=== PATIENT | male | born 1935 | race Caucasian/White ===

== ENCOUNTER 2017-12-19 15:01 | Outpatient (CLI) | payer MEDICARE, BC, SELFPAY | END 2017-12-19 15:02 | PROVIDERS: PCP Family Medicine; Visit Provider Psychiatry & Neurology Neurology | DX: I63.432 Cerebral infarction due to embolism of left posterior cerebral artery (principal); R41.3 Other amnesia; R25.1 Tremor, unspecified; I10 Essential (primary) hypertension | CPT/HCPCS: 99215 ==

== ENCOUNTER 2018-03-12 13:11 | Outpatient (REF) | payer MEDICARE, BC, SELFPAY ==
[2018-03-13 15:33] LABS: Chlamydia Result Negative; GC Result Negative; Specimen Description URINE
== END 2018-03-12 13:31 ==
LOC: LBN 13:11
PROVIDERS: PCP Family Medicine; Visit Provider Family Medicine
DX: R36.9 Urethral discharge, unspecified (principal); Z11.3 Encounter for screening for infections with a predominantly sexual mode of transmission
CPT/HCPCS: 87077; 87491; 87591; 87070; 87075; 87086; 87186; 87205

== ENCOUNTER 2018-04-28 22:48 | Outpatient (REF) | payer MEDICARE, BC, SELFPAY ==
[2018-04-28 23:11] LABS: Bilirubin Negative (Negative); Blood Moderate (Negative); Clarity Cloudy; Glucose Negative (Negative); Ketones Negative (Negative); Leukocyte Esterase Large (Negative); Nitrite Positive (Negative); pH 7.5 (5-8)
[2018-04-28 23:23] LABS: WBC >50 HPF (0-5)
[2018-04-28 23:24] LABS: C & S Indicated? C&S Done As Ordered
== END 2018-04-28 23:08 ==
LOC: LBN 22:48
PROVIDERS: PCP Family Medicine; Visit Provider Family Medicine
DX: R82.90 Unspecified abnormal findings in urine (principal); R30.0 Dysuria
CPT/HCPCS: 87077; 81003; 81015; 87086

== ENCOUNTER 2018-10-22 10:26 | Outpatient (REF) | payer MEDICARE, BC, SELFPAY ==
[2018-10-22 08:16] LABS: Calculated LDL 79; Cholesterol 141 mg/dL (50-200); HDL Cholesterol 52 mg/dL (40-60); Triglyceride 53 mg/dL (30-150)
== END 2018-10-22 10:46 ==
LOC: LBN 10:26
PROVIDERS: PCP Family Medicine; Visit Provider Nurse Practitioner Adult Health
DX: I10 Essential (primary) hypertension (principal); I48.2 Chronic atrial fibrillation
CPT/HCPCS: 80061; 83721

== ENCOUNTER 2018-11-12 11:05 | Outpatient (REF) | payer MEDICARE, BC, SELFPAY ==
[2018-11-12 12:35] LABS: Uric Acid 3.6 mg/dL (3.5-7.2)
[2018-11-12 12:46] LABS: Abs Immature Grans 0.06 k/cumm (0.0-0.09); Absolute Basophil Count 0.02 k/cumm (0.0-0.2); Absolute Eosinophil Count 0.08 k/cumm (0.0-0.7); Absolute Lymphocyte Count 1.19 k/cumm (1.2-3.4); Absolute Neutrophil Count 7.14 k/cumm (1.2-6.7); Basophils % 0.2; Eosinophils % 0.8; HCT 41.1 % (40.0-50.0); HGB 14.3 g/dL (13.5-17.5); Immature Grans % 0.6; Lymphocytes % 12.2; Mean Corp. HGB Concentration 34.8 g/dL (32.0-36.0); Mean Corpuscular Hemoglobin 31.1 pg (27.0-33.0); Mean Corpuscular Volume 89.3 fL (80-95); Mean Platelet Volume 9.7 fL (8.0-11.0); Monocytes % 13.3; Neutrophils % 72.9; Platelet Count 229 x1000/uL (130-400); RBC Distribution Width 13.4 % (11.8-14.1); White Blood Cell Count 9.79 k/cumm (4.4-10.8)
== END 2018-11-12 11:25 ==
LOC: LBN 11:05
PROVIDERS: PCP Family Medicine; Visit Provider Nurse Practitioner Adult Health
DX: M10.9 Gout, unspecified (principal)
CPT/HCPCS: 84550; 85025

== ENCOUNTER 2019-04-18 18:50 | Outpatient (REF) | payer MEDICARE, BC, SELFPAY | END 2019-04-18 19:10 | LOC: LBN 18:50 | PROVIDERS: PCP Family Medicine; Visit Provider Family Medicine | DX: N39.0 Urinary tract infection, site not specified (principal) | CPT/HCPCS: 87070; 87205 ==

== ENCOUNTER 2019-04-20 15:37 | Outpatient (REF) | payer MEDICARE, BC, SELFPAY | END 2019-04-20 15:57 | LOC: LBN 15:37 | PROVIDERS: PCP Family Medicine; Visit Provider Nurse Practitioner Adult Health | DX: N48.89 Other specified disorders of penis (principal); R36.9 Urethral discharge, unspecified | CPT/HCPCS: 87070; 87205 ==

== ENCOUNTER → 2019-06-01 07:55 | Outpatient (BNVA) | payer MEDICARE, BC, SELFPAY | PROVIDERS: PCP Family Medicine; Referring Provider Family Medicine; Visit Provider Urology | DX: R36.9 Urethral discharge, unspecified (principal) | CPT/HCPCS: 99203; 99214 ==

== ENCOUNTER 2019-10-25 13:02 | Emergency (ER) | payer MEDICARE, BC, SELFPAY ==
--- NOTE | 2019-10-25 12:45 | DI.RAD_ITS ---
EXAM: XR CHEST 1V IN DI DEPT CLINICAL HISTORY: R sided weakness, r/o cva, r/o acute disease TECHNIQUE: 2D digital imaging was performed. COMPARISON: No exams were available for comparison FINDINGS: MEDIASTINUM: Normal. HEART: Normal. PULMONARY VASCULATURE: Normal. LUNGS: Mild right basilar atelectasis. PLEURAL SPACE: No pleural effusion or pneumothorax. BONE:Age-appropriate degenerative changes are seen in the spine. Degenerative changes are seen in sh oulders bilaterally. OTHER FINDINGS:Poor inspiration with elevation of the right hemidiaphragm. IMPRESSION: Mild right basilar atelectasis. DATA REPOSITORY: RADIATION DOSE DELIVERED:
--- NOTE | 2019-10-25 12:45 | DI.CT_ITS ---
EXAM: CT HEAD - STROKE PROTOCOL CLINICAL HISTORY: Facial droop, R sided weakness, r/o acute cva. TECHNIQUE: Imaging Protocol: Axial computed tomography images with coronal and sagittal reformatted images were created and reviewed COMPARISON: No exams were available for comparison FINDINGS: There is patient motion artifact present. Ventricles and Extra axial spaces: There is global cerebral atrophy present. Hemorrhage: None. Cerebral parenchyma: There are areas of decreased attenuation in the white matter consistent with sma ll vessel ischemic disease. There is a large left [employer] distribution infarct noted. No acute territor ial infarct is seen. Midline shift: None. Brainstem/Cerebellum: Normal. Calvarium: Normal. Visualized Paranasal sinuses/Mastoids: Clear. Soft Tissues: Unremarkable. IMPRESSION: No acute intracranial process. RADIATION DOSE DELIVERED: Total DLP DATA REPOSITORY: All CT scans at this facility are submitted to the National Radiology Data Registry (NRDR) Dose Index Registry (DIR) with the [employer] (A[employer]). RADIATION OPTIMIZATION: All CT scans at this facility use at least one of these dose optimization te chniques: automated exposure control; mA and/or kV adjustment per patient size (includes targeted exa ms where dose is matched to clinical indication); or iterative reconstruction.
[2019-10-25 13:07] VITALS: BP 149/88; PULSE 88; RESP 15; TEMP 36.8; O2SAT 98
--- NOTE | 2019-10-25 13:11 | ED.GENADUL_ITS ---
Discharge Plan Disposition Patient Disposition: HOME Condition: Stable Discharge Details Chief Complaint: CVA/TIA Clinical Impression: Right sided weakness, History of dementia Primary Care Provider: Elissa Montero ED Provider: Lo Laurent Home Meds and New Rx's Prescriptions: No Action gabapentin 100 MG capsule 100 mg PO BID Qty: 1 RF: 0 acetaminophen 325 MG tablet 650 mg PO Q4H PRN RF: 0 lorazepam [Ativan] 0.5 MG tablet 0.5 mg PO Q8H PRN RF: 0 magnesium hydroxide [Milk of Magnesia] 400 MG/5 ML suspension 30 ml PO PRN RF: 0 tamsulosin 0.4 MG capsule 0.8 mg PO HS RF: 0 bisacodyl [Dulcolax (bisacodyl)] 10 MG suppository 10 mg RC PRN RF: 0 Fleet Enema 133 ML enema 133 ml RC PRN RF: 0 folic acid 1 MG tablet 1 mg PO DAILY RF: 0 gabapentin 100 MG capsule 100 mg PO BID RF: 0 brimonidine 15 ML drops 1 drp OS BID RF: 0 Discharge Instructions Instructions: Weakness (ED) Additional Instructions: Drink plenty of fluids and get plenty of rest. Alternate tylenol and motrin as needed and directed for pain. Follow-up with your primary care doctor in the next 2 days. Return to the emergency department with any worsening or new concerning symptoms. Discharge Data Discharge Date/Time-TO BE ENTERED AT DEPARTURE: 10/25/19 14:38 Discharge Physician: Lo Laurent Medical Decision Making 84-year-old male with a history of dementia, previous stroke with hemiparesis presents as a stroke alert with slurred speech, facial droop and right-sided weakness noted within the past hour while at [facility]. BP mildly hypertensive, otherwise vitals with normal limits. Patient sent directly to radiology for stat CT head which was negative for any acute findings. Chest x-ray negative. Upon return from radiology, patient is refusing IV, lab draw or any other work- up. He will not answer any questions stating only I am tired of this and want to go . Patient is DNR/DNI. Case was discussed with patient's son Sriram who stated that he does not want father to have any work-up against his wishes and that pt has been stating that he is tired and frustrated and wanting everything to end since his stroke 1 to 2 years ago. Son is fine with transfer back to the rehab without any further work-up here. Patient was noted to move his upper extremities but will not follow commands and lift his lower extremities or answer any other questions. Case was discussed w/ nurse shipping manager Ariella at [facility] as well as Dr. Yates who is the physician covering at [facility]. They were informed of plan for transfer back to the rehab. Advised to return with any concerns. Medical Records Medical records reviewed: Yes I reviewed the patient's medical records. Imaging Data Radiologic Study: Radiologist's impression: CT Head Without Contrast Exam date and time: 10/25/2019 12:55 PM Age: 84 years old Clinical indication: Other: Facial droop, R sided weakness, R/O acute CVA TECHNIQUE: Imaging protocol: Computed tomography of the head without contrast. Radiation optimization: All CT scans at this facility use at least one of these dose optimization techniques: automated exposure control; mA and/or kV adjustment per patient size (includes targeted exams where dose is matched to clinical indication); or iterative reconstruction. Other technique: STROKE PROTOCOL was implemented. COMPARISON: No relevant prior studies available. FINDINGS: Brain: There is an old left posterior cerebral artery infarct zone with encephalomalacia of the left occipital lobe and posterior medial left temporal lobe. There is atrophy and chronic small vessel deep white matter ischemia which is severe in nature. There is no acute hemorrhage. There is no large territory acute CVA. Ventricles: Normal. No ventriculomegaly. Bones/joints: Unremarkable. No acute fracture. Sinuses: Visualized sinuses are unremarkable. No fluid levels. Mastoid air cells: Visualized mastoid air cells are well aerated. Soft tissues: Unremarkable. IMPRESSION: 1. Old left posterior cerebral artery territory infarct. 2. Atrophy and chronic small vessel deep white matter ischemia. 3. No acute large territory CVA. 4. No intracranial hemorrhage. XR Chest, 1 View Exam date and time: 10/25/2019 1:32 PM Age: 84 years old Clinical indication: Other: R sided weakness, R/O CVA, R/O acute disease TECHNIQUE: Imaging protocol: XR of the chest Views: 1 view. COMPARISON: No relevant prior studies available. FINDINGS: Lungs: Mild right basilar atelectasis. No acute lung infiltrates. No edema. Pleural space: No pleural effusions. Heart/Mediastinum: Normal heart size. Bones/joints: Degenerative thoracic spine disease and bilateral shoulder joint changes. IMPRESSION: 1. Mild right basilar atelectatic features are suggested. 2. No acute infiltrates or edema. 3. No pleural effusions. 4. Degenerative skeletal disease. HPI General Mode of arrival: EMS . Date/Time Provider Initiated Documentation: 10/25/19 13:11 . Limitations to Documentation: no limitations . Information obtained by: RN/MD and EMS . HPI Narrative: Patient is a 84-year-old male with a history of dementia, previous stroke with hemiparesis who resides at [facility] who presents as a possible stroke alert. Per report at [facility], patient was sitting eating lunch when shortly after he was noted to have a facial droop and slurred speech and right-sided weakness. Patient does not provide history and states only I want to leave and I am tired of this . Related Data Home Medications Medication Instructions Recorded Confirmed gabapentin 100 mg PO BID #1 12/19/17 10/25/19 acetaminophen 650 mg PO Q4H PRN tab-cap 12/23/17 10/25/19 bisacodyl [Dulcolax] 10 mg RC PRN supp 12/23/17 10/25/19 brimonidine 1 drp OS BID drp 12/23/17 10/25/19 folic acid 1 mg PO DAILY tab-cap 12/23/17 10/25/19 gabapentin 100 mg PO BID tab-cap 12/23/17 10/25/19 lorazepam [Ativan] 0.5 mg PO Q8H PRN tab-cap 12/23/17 magnesium hydroxide [Milk of 30 ml PO PRN ml 12/23/17 10/25/19 Magnesia] sodium phosphates [Fleet Enema] 133 ml RC PRN enema 12/23/17 10/25/19 tamsulosin 0.8 mg PO HS tab-cap 12/23/17 10/25/19 Previous Rx's Medication Instructions Recorded gabapentin 100 mg PO BID #1 12/19/17 Allergies Allergy/AdvReac Type Severity Reaction Status Date / Time No Known Allergies Allergy Unverified 10/25/19 13:19 Review of Systems Narrative: pt will not answer questions Unobtainable due to mental status PFSH Medical History (Updated 10/25/19 @ 14:06 by Lo Laurent DO) Abnormality of gait and mobility (Acute) Aphasia (Acute) BPH w urinary obs/LUTS (Acute) Cerebral infarction (Acute) Diverticulum of bladder (Acute) Dysphagia (Acute) ETOH abuse (Chronic) GERD (gastroesophageal reflux disease) (Chronic) Glaucoma (Chronic) Hemiparesis (Acute) Hemiplegia (Acute) Major depressive disorder (Acute) Muscle weakness (Acute) Social History Do you feel safe in your relationship?: Yes Exam Const General: other (irritable) Orientation: alert and awake HENMT Head: normal to inspection Ears: hearing grossly normal bilaterally and external ears normal General nose exam: external nose normal Face and sinus: normal facial exam Mouth: oral mucosae normal Eyes General: appearance normal, both eyes and all related structures Eyelids: other (yellow discharge b/l eyes) Pupils: PERRL EOM: EOM intact bilaterally Neck Neck: normal visual inspection Lymphatic: no lymphadenopathy noted Chest Chest: normal inspection of the chest Resp Effort & Inspection: normal respiratory effort and able to speak in complete sentences Auscultation: clear to auscultation bilaterally Cardio Rate: regular rate Rhythm: regular rhythm GI Inspection: normal to inspection Palpation: soft, not firm, no guarding, no hepatosplenomegaly, no masses and nontender Auscultation: normal bowel sounds Skin General skin exam: no rashes or lesions noted Neuro General: patient alert, patient awake and other (moves upper extremities) Cognition: normal cognition Speech: speech normal Sensory Exam: no sensory deficits noted Extrem General: normal to inspection, full ROM and capillary refill normal Psych Appearance: grossly normal Mental Status: mental status grossly normal Speech and Movement: speech and movement normal Mood: irritable mood Affect: normal affect Thought Process: normal
--- NOTE | 2019-10-25 13:22 | DI.VRAD_ITS ---
PROCEDURE INFORMATION: Exam: CT Head Without Contrast Exam date and time: 10/25/2019 12:55 PM Age: 84 years old Clinical indication: Other: Facial droop, R sided weakness, R/O acute CVA TECHNIQUE: Imaging protocol: Computed tomography of the head without contrast. Radiation optimization: All CT scans at this facility use at least one of these dose optimization techniques: automated exposure control; mA and/or kV adjustment per patient size (includes targeted exams where dose is matched to clinical indication); or iterative reconstruction. Other technique: STROKE PROTOCOL was implemented. COMPARISON: No relevant prior studies available. FINDINGS: Brain: There is an old left posterior cerebral artery infarct zone with encephalomalacia of the left occipital lobe and posterior medial left temporal lobe. There is atrophy and chronic small vessel deep white matter ischemia which is severe in nature. There is no acute hemorrhage. There is no large territory acute CVA. Ventricles: Normal. No ventriculomegaly. Bones/joints: Unremarkable. No acute fracture. Sinuses: Visualized sinuses are unremarkable. No fluid levels. Mastoid air cells: Visualized mastoid air cells are well aerated. Soft tissues: Unremarkable. IMPRESSION: 1. Old left posterior cerebral artery territory infarct. 2. Atrophy and chronic small vessel deep white matter ischemia. 3. No acute large territory CVA. 4. No intracranial hemorrhage. ASSESSMENT: ASPECTS ([place] Stroke Program Early CT Score) is 10. Dictated and Authenticated by: Wes Langford MD. Ordering:GUERRERO Blanchard MD
[2019-10-25 13:35] VITALS: PULSE 82; RESP 14; O2SAT 98
[2019-10-25 13:37] VITALS: BP 149/88; PULSE 75; PULSE 78; RESP 19; O2SAT 98
[2019-10-25 13:40] VITALS: PULSE 78; RESP 21
--- NOTE | 2019-10-25 13:45 | DI.VRAD_ITS ---
PROCEDURE INFORMATION: Exam: XR Chest, 1 View Exam date and time: 10/25/2019 1:32 PM Age: 84 years old Clinical indication: Other: R sided weakness, R/O CVA, R/O acute disease TECHNIQUE: Imaging protocol: XR of the chest Views: 1 view. COMPARISON: No relevant prior studies available. FINDINGS: Lungs: Mild right basilar atelectasis. No acute lung infiltrates. No edema. Pleural space: No pleural effusions. Heart/Mediastinum: Normal heart size. Bones/joints: Degenerative thoracic spine disease and bilateral shoulder joint changes. IMPRESSION: 1. Mild right basilar atelectatic features are suggested. 2. No acute infiltrates or edema. 3. No pleural effusions. 4. Degenerative skeletal disease. Dictated and Authenticated by: Wes Langford MD. Ordering:GUERRERO Blanchard MD
[2019-10-25 14:18] VITALS: BP 149/88; PULSE 72; RESP 18; O2SAT 98
[2019-10-25 14:21] VITALS: RESP 18
== END 2019-10-25 14:38 | disposition home or self-care (01) ==
LOC: ER 14:42
PROVIDERS: Emergency Provider Physician Assistant; PCP Family Medicine
DX: R47.81 Slurred speech (principal); R29.810 Facial weakness; F03.90 Unspecified dementia, unspecified severity, without behavioral disturbance, psychotic disturbance, mood disturbance, and anxiety; I69.351 Hemiplegia and hemiparesis following cerebral infarction affecting right dominant side; Z53.29 Procedure and treatment not carried out because of patient's decision for other reasons
CPT/HCPCS: 36415; 80053; 93005; 99285; 70450; 71045; 83735; 84484; 85025; 85610; 85730; 93010

== ENCOUNTER 2019-11-06 15:55 | Outpatient (REF) | payer MEDICARE, BC, SELFPAY ==
[2019-11-09 16:58] LABS: COVID-19 RT-PCR Result Not Detected ((See Note))
== END 2019-11-06 16:15 ==
LOC: LBN 15:55
PROVIDERS: PCP Family Medicine; Visit Provider Nurse Practitioner Adult Health
DX: Z03.818 Encounter for observation for suspected exposure to other biological agents ruled out (principal)
CPT/HCPCS: U0003

== ENCOUNTER 2020-02-16 16:25 | Outpatient (REF) | payer MEDICARE, BC, SELFPAY ==
[2020-02-18 08:20] LABS: COVID-19 RT-PCR Result Not Detected ((See Note))
== END 2020-02-16 16:45 ==
LOC: LBN 16:25
PROVIDERS: PCP Family Medicine; Visit Provider Nurse Practitioner Adult Health
DX: Z11.59 Encounter for screening for other viral diseases (principal)
CPT/HCPCS: U0003

== ENCOUNTER 2020-09-10 07:27 | Outpatient (REF) | payer MEDICARE, BC, SELFPAY ==
[2020-09-10 07:46] LABS: Bilirubin Negative (Negative); Blood Moderate (Negative); Clarity Sl Cloudy (Clear); Glucose Negative (Negative); Ketones Negative (Negative); Leukocyte Esterase Small (Negative); Nitrite Negative (Negative); Specific Gravity 1.015 (1.005-1.025); Urobilinogen 0.2 EU/dL (Up TO 0.2)
[2020-09-10 07:55] LABS: Bacteria Moderate HPF (Negative); C & S Indicated? C&S Done As Ordered; Casts 0-2 Coarse Granular LPF (Negative); Crystals Negative HPF (Negative); Epithelial Cells Few HPF (Negative); Mucus Trace (Negative); RBC 20-50 HPF (0-2)
== END 2020-09-10 07:28 | disposition home or self-care (01) ==
LOC: LBN 07:27
PROVIDERS: PCP Family Medicine; Visit Provider Family Medicine
DX: N39.0 Urinary tract infection, site not specified (principal)
CPT/HCPCS: 81003; 81015; 87086

== ENCOUNTER 2021-05-11 03:52 | Outpatient (REF) | payer SELFPAY ==
[2021-05-11 05:02] LABS: C Diff PCR Negative (Negative)
== END 2021-05-11 03:53 | disposition home or self-care (01) ==
LOC: LBN 03:52
PROVIDERS: PCP Family Medicine; Visit Provider Family Medicine
DX: R19.7 Diarrhea, unspecified (principal)
CPT/HCPCS: 87493